=== PATIENT | male | born 1975 | race Caucasian/White ===

== ENCOUNTER 2016-09-05 13:04 | Emergency (ER) | payer MEDICAID ==
[~2016-09-05] VITALS: Ht 165.1 cm; Wt 72.0 kg
[2016-09-05 13:21] VITALS: Ht 165.1 cm; Wt 72.0 kg
--- NOTE | 2016-09-05 17:35 | RADRPT ---
PROCEDURE: XR, facial bones. CLINICAL INDICATION: Pain/trauma. TECHNIQUE: 3 views of the facial bones are available for review. COMPARISON: None available. FINDINGS: The facial bones are unremarkable. No nasal fracture is seen. The sinuses are normal. No sinus a ir-fluid collection is seen. The soft tissues are unremarkable. The mandible as visualized is equa lly unremarkable. The zygomatic arches grossly intact in a symmetric fashion. The orbital rims are unremarkable. IMPRESSION: 1. Unremarkable facial bones xray series. RPTAT: GG .Ariel Cardoso MD, MD Date Time Electronically viewed and signed by .Ariel Cardoso MD, MD on 09/05/2016 17:35 .Y/
[2016-09-05] MEDS ORDERED: ACET500C5 PO (17:57)
--- NOTE | 2016-09-05 18:12 | ERD ---
ER Documentation Chief Complaint Date/Time DATE: 09/05/16 TIME: 18:01 Chief Complaint possible nose injury due to fall today HPI Patient is a 41-year-old male who presents to the emergency department with nasal pain status post injury earlier today. He states that he was playing football with some friends when he was hit in the nose by a friend's elbow. Patient states that he had one episode of epistaxis which lasted approximately 1 -2 minutes. Bleeding has now resolved. Patient denies any blood thinner use. Patient states that he does have a mild frontal headache. He states that his pain is currently a 3 out of 10. Patient describes the pain to be throbbing. The pain does not radiate. Patient denies sudden onset. Patient denies any confusion, nausea, vomiting, loss of consciousness. ROS All systems reviewed and are negative except as per history of present illness. Medications Home Meds Active Scripts Acetaminophen* (Tylophen*) 500 Mg Capsule, 2 CAP PO Q8H Y for PAIN AND OR ELEVATED TEMP, #20 CAP Prov:LUCINDA TAY PA-C 09/05/16 Reported Medications [None] No Conflict Check 04/21/10 Allergies Allergies: Coded Allergies: No Known Allergies (Verified Allergy, Mild, 04/21/10) PMhx/Soc History of Surgery: No Anesthesia Reaction: No Hx Neurological Disorder: No Hx Respiratory Disorders: No Hx Cardiac Disorders: No Hx Psychiatric Problems: No Hx Miscellaneous Medical Probl: No Hx Alcohol Use: Yes Hx Substance Use: No Hx Tobacco Use: No FmHx Family History: No diabetes Physical Exam Vitals Vital Signs Date Time Temp Pulse Resp B/P Pulse Ox O2 Delivery O2 Flow Rate FiO2 09/05/16 13:21 97.8 95 20 132/80 99 Physical Exam GENERAL: Well-developed, well-nourished male. Appears in no acute distress. Speaking in full sentences. HEAD: Normocephalic, atraumatic. No deformities or ecchymosis. No scalp hematomas. EYE: Pupils equal, round, and reactive to light. EOMs intact. No conjunctival erythema. No periorbital ecchymosis bilaterally. ENT: External ear without any masses or tenderness. Auditory canals clear bilaterally. TM visualized bilaterally, non-erythematous, non-bulging. Dried dark red blood noted in left nasal cavity. Oropharynx is pink without any tonsillar erythema or exudates. No blood noted in posterior oropharynx. No uvula deviation. No kissing tonsils. No mastoid process tenderness bilaterally. Nasal septum is tender to palpation. Ecchymosis and swelling noted to the right aspect of nasal bridge. No septal hematomas. NECK: Supple. No meningismus. No cervical midline tenderness. LUNG: Clear to auscultation bilaterally. No rhonchi, wheezing, rales or coarse breath sounds. HEART: Regular rate and rhythm. No murmurs, rubs or gallops. BACK: No midline tenderness. EXTREMITES: Equal pulses bilaterally. No peripheral clubbing, cyanosis or edema. No unilateral leg swelling. NEUROLOGIC: Alert and oriented x3, cooperative. Mood and affect appropriate to situation. Cranial nerves II through XII are grossly intact. Normal speech. Motor exam: 5/5 strength in upper and lower extremities. Sensory exam: Sensation intact to light touch on all four extremities. Cerebellar function exam: No dysmetria on [id number] test. Steady gait. No pronator drift. SKIN: Normal color. Warm and dry. No rashes or lesions. Procedures/MDM ED COURSE: DIAGNOSTIC IMAGING: read by radiologist DIAGNOSTIC IMAGING REPORT Patient: MARVA IVAN : 1975 Age: 41 Sex: M MR #: [id number] DOS: 09/05/16 1645 Ordering MD: LUCINDA TAY PA-C Location: [facility] Room/Bed: PROCEDURE: XR, facial bones. CLINICAL INDICATION: Pain/trauma. TECHNIQUE: 3 views of the facial bones are available for review. COMPARISON: None available. FINDINGS: The facial bones are unremarkable. No nasal fracture is seen. The sinuses are normal. No sinus air-fluid collection is seen. The soft tissues are unremarkable. The mandible as visualized is equally unremarkable. The zygomatic arches grossly intact in a symmetric fashion. The orbital rims are unremarkable. IMPRESSION: 1. Unremarkable facial bones xray series. RPTAT: GG .Ariel Cardoso MD, MD Date Time Electronically viewed and signed by .Ariel Cardoso MD, on 09/05/2016 17:35 .Y/ CC: LUCINDA TAY PA-C MEDICAL DECISION MAKING: This is a 41-year-old male who presents with mild headache, nasal pain and epistaxis s/p being hit in the nose by a friend's elbow while playing football. Vital signs were reviewed. Patient was afebrile. Patient is not hypoxic. Patient denied any nausea, vomiting, loss of consciousness. Full neurological exam was normal. Given these findings, the patients presentation is most consistent with nasal contusion and anterior nose bleed resolved. I have a much lower clinical concern for traumatic brain injury, intracranial hemorrhage, CVA , migraine headache, facial fractures, septal hematoma, posterior nose bleed. PRESCRIPTIONS: Tylenol DISCHARGE: At this time, patient is stable for discharge and outpatient management. I have encouraged the patient to hydrate well. I have instructed the patient to follow- up with his/her primary care physician in 1-2 days. If symptoms persist, patient may need to see a ENT specialist for further examinations and testing. I have instructed the patient to promptly return to the ER at any time for any new or worsening symptoms including increased increased pain, fever, nausea, vomiting, numbness, neck stiffness, visual changes, weakness or LOC. The patient and/or family expressed understanding of and agreement with this plan. All questions were answered. Home care instructions were provided. Departure Diagnosis: Primary Impression: Nasal pain Additional Impression: Epistaxis Condition: Stable Patient Instructions: Epistaxis (Adult) Referrals: [facility] YOU HAVE RECEIVED A MEDICAL SCREENING EXAM AND THE RESULTS INDICATE THAT YOU DO NOT HAVE A CONDITION THAT REQUIRES URGENT TREATMENT IN THE EMERGENCY DEPARTMENT. FURTHER EVALUATION AND TREATMENT OF YOUR CONDITION CAN WAIT UNTIL YOU ARE SEEN IN YOUR DOCTORS OFFICE WITHIN THE NEXT 1-2 DAYS. IT IS YOUR RESPONSIBILITY TO MAKE AN APPOINTMENT FOR FOLOW-UP CARE. IF YOU HAVE A PRIMARY DOCTOR --you should call your primary doctor and schedule an appointment IF YOU DO NOT HAVE A PRIMARY DOCTOR YOU CAN CALL OUR PHYSICIAN REFERRAL HOTLINE AT IF YOU CAN NOT AFFORD TO SEE A PHYSICIAN YOU CAN CHOSE FROM THE FOLLOWING [facility] [address] [facility]. [facility] [address] [facility] [address] [facility] [address] [facility]. [facility] [address] [facility]. [facility]. [address] [facility]. [facility] YOU HAVE RECEIVED A MEDICAL SCREENING EXAM AND THE RESULTS INDICATE THAT YOU DO NOT HAVE A CONDITION THAT REQUIRES URGENT TREATMENT IN THE EMERGENCY DEPARTMENT. FURTHER EVALUATION AND TREATMENT OF YOUR CONDITION CAN WAIT UNTIL YOU ARE SEEN IN YOUR DOCTORS OFFICE WITHIN THE NEXT 1-2 DAYS. IT IS YOUR RESPONSIBILITY TO MAKE AN APPOINTMENT FOR FOLOW-UP CARE. IF YOU HAVE A PRIMARY DOCTOR --you should call your primary doctor and schedule and appointment IF YOU DO NOT HAVE A PRIMARY DOCTOR YOU CAN CALL OUR PHYSICIAN REFERRAL HOTLINE AT . IF YOU CAN NOT AFFORD TO SEE A PHYSICIAN YOU CAN CHOSE FROM THE FOLLOWING [facility] INSTITUTIONS: [facility] [address] [place] [address] [facility] [address] [place] [address] [facility] + [facility] [address] [place] [address] Additional Instructions: Call your primary care doctor TOMORROW for an appointment during the next 1-2 days.See the doctor sooner or return here if your condition worsens before your appointment time. LUCINDA TAY PA-C Sep 05, 2016 18:12
== END 2016-09-05 18:23 | disposition home or self-care (01) ==
LOC: FTE 13:04
DX: S09.92XA Unspecified injury of nose, initial encounter (principal); R04.0 Epistaxis; W50.0XXA Accidental hit or strike by another person, initial encounter; Y92.9 Unspecified place or not applicable
CPT/HCPCS: 70140; Z7502